=== PATIENT | female | born 1985 | race African-American/Black ===

== ENCOUNTER 2017-08-02 22:36 | Emergency (ER) | payer MEDICAID ==
[~2017-08-02] VITALS: Ht 152.4 cm; Wt 59.0 kg
[~2017-08-02 22:36] MED LIST: AZAT50TA24 PO; CALC-4 PO; OMEP20CA10 PO
[2017-08-02 22:54] VITALS: BP 129/74
== END 2017-08-03 02:30 | disposition left against medical advice (07) ==
LOC: ER 22:54
DX: R53.1 Weakness (principal); Z53.21 Procedure and treatment not carried out due to patient leaving prior to being seen by health care provider

== ENCOUNTER 2017-08-04 00:15 | Emergency (ER) | payer MEDICAID ==
[~2017-08-04] VITALS: Ht 167.6 cm; Wt 61.0 kg
[2017-08-04] MEDS ORDERED: SODIUM CHLORIDE 0.9% 1,000 ML IV ONE (05:08)
[2017-08-04] MEDS ORDERED: ONDANSETRON HCL 4MG/2ML VIAL IV STA (05:08)
[2017-08-04] MEDS ORDERED: FAMOTIDINE 20MG/2ML VIAL IV STA (05:08)
[2017-08-04 05:36] LABS: CHLORIDE 107 mEq/L (98-107)
[2017-08-04 05:37] LABS: HCG SCREEN NEGATIVE
[2017-08-04 05:38] LABS: INR 1.3; PROTHROMBIN TIME 13.8 sec (9.4-11.6)
[2017-08-04 05:45] LABS: CARBON DIOXIDE 26 mEq/L (21-32); ETHANOL BLOOD < 10 mg/dL
[2017-08-04 05:50] LABS: BASOPHILS % 0.9 % (0.0-2.0); EOSINOPHILS % 2.2 % (0.0-5.0); HEMATOCRIT. 30.2 % (36.0-48.0); HEMOGLOBIN. 10.9 g/dL (12.0-16.0); LYMPHOCYTES % 16.6 % (20.0-50.0); MEAN CORPUSCULAR HEMOGLOBIN 37.3 pg (28.0-32.0); MEAN CORPUSCULAR VOLUME 103.6 fL (81.0-99.0); MEAN PLATELET VOLUME 7.3 fl (7.4-10.4); MONOCYTES % 5.7 % (2.0-8.0); NEUTROPHILS % 74.6 % (40.0-76.0); PLATELET 54 x1000/uL (130-400); RED BLOOD CELL COUNT 2.91 mill/uL (4.2-5.4); RED CELL DISTRIBUTION WIDTH 13.4 % (11.6-14.6)
[2017-08-04 07:41] LABS: AMMONIA 147 uMol/L (<32)
[2017-08-04 09:16] LABS: CLARITY URINE CLEAR (CLEAR); COLOR URINE YELLOW (YELLOW); GLUCOSE URINE NEGATIVE (NEGATIVE); KETONES URINE NEGATIVE (NEGATIVE); LEUKOCYTE ESTERASE URINE NEGATIVE (NEGATIVE); NITRITE URINE NEGATIVE (NEGATIVE); OCCULT BLOOD URINE NEGATIVE (NEGATIVE); PH URINE 8.5 (4.5-8.0); PROTEIN URINE NEGATIVE (NEGATIVE); SPECIFIC GRAVITY URINE 1.009 (1.005-1.030)
[2017-08-04 09:28] LABS: *AMPHETAMINES SCREEN URINE NEGATIVE (NEGATIVE); *BARBITURATES SCREEN URINE NEGATIVE (NEGATIVE); *BENZODIAZEPINES SCREEN URINE NEGATIVE (NEGATIVE); *COCAINE SCREEN URINE NEGATIVE (NEGATIVE); CANNABINOID URINE SCREEN NEGATIVE (NEGATIVE); METHADONE URINE SCREEN NEGATIVE (NEGATIVE); OPIATES URINE SCREEN NEGATIVE (NEGATIVE); PHENCYCLIDINE URINE SCREEN NEGATIVE (NEGATIVE)
[2017-08-04 11:19] VITALS: BP 130/64
== END 2017-08-04 11:42 | disposition home or self-care (01) ==
LOC: ER 00:33
DX: K72.90 Hepatic failure, unspecified without coma (principal); D64.9 Anemia, unspecified; D72.819 Decreased white blood cell count, unspecified; I10 Essential (primary) hypertension
CPT/HCPCS: 36415; 71010; 74176; 80053; 80305; 81003; 82140; 83605; 83690; 84703; 85025; 85610; 93005; 96361; 96374; 96375; 99285; G0482; J2405; J3490; Z7610; J7030

== ENCOUNTER 2019-07-28 20:11 | Emergency (ER) | payer MEDICAID ==
[~2019-07-28] VITALS: Ht 152.4 cm; Wt 59.0 kg
[~2019-07-28 20:11] MED LIST changes: -OMEP20CA10 PO; +OMEP20CA5 PO
[2019-07-28] MEDS ORDERED: HYDROCODONE/ACETAMINOPHEN 5/325MG TABLET PO ONE (21:00)
[2019-07-28] MEDS ORDERED: PENICILLIN V POTASSIUM 250MG TABLET PO ONE (21:00)
[2019-07-28 21:39] VITALS: BP 125/71
== END 2019-07-28 21:45 | disposition home or self-care (01) ==
LOC: ER 20:11
DX: K04.7 Periapical abscess without sinus (principal)
CPT/HCPCS: 99283

== ENCOUNTER 2021-11-10 17:06 | Inpatient (IN) | payer MEDICAID ==
[~2021-11-10] VITALS: Ht 152.4 cm; Wt 63.5 kg
[~2021-11-10 17:06] MED LIST changes: +OMEP20CA14 PO; -OMEP20CA5 PO
[2021-11-10 21:33] LABS: CHLORIDE 112 mEq/L (98-107)
[2021-11-10 21:37] LABS: ETHANOL BLOOD < 10 mg/dL
[2021-11-10 21:44] LABS: BASOPHILS % 0.7 % (0.0-2.0); EOSINOPHILS % 1.3 % (0.0-5.0); HEMATOCRIT. 31.4 % (36.0-48.0); HEMOGLOBIN. 11.3 g/dL (12.0-16.0); LYMPHOCYTES % 21.1 % (20.0-50.0); MEAN CORPUSCULAR VOLUME 102.7 fL (81.0-99.0); MEAN PLATELET VOLUME 7.7 fl (7.4-10.4); MONOCYTES % 7.4 % (2.0-8.0); NEUTROPHILS % 69.5 % (40.0-76.0); PLATELET 66 x1000/uL (130-400); RED BLOOD CELL COUNT 3.06 mill/uL (4.2-5.4); RED CELL DISTRIBUTION WIDTH 15.9 % (11.6-14.6)
[2021-11-10 22:07] LABS: CLARITY URINE CLEAR (CLEAR); COLOR URINE YELLOW (YELLOW); KETONES URINE NEGATIVE (NEGATIVE); LEUKOCYTE ESTERASE URINE TRACE (NEGATIVE); NITRITE URINE NEGATIVE (NEGATIVE); OCCULT BLOOD URINE NEGATIVE (NEGATIVE); PH URINE 6.5 (4.5-8.0); PROTEIN URINE NEGATIVE (NEGATIVE); SPECIFIC GRAVITY URINE 1.009 (1.005-1.030)
[2021-11-10 22:42] LABS: *AMPHETAMINES SCREEN URINE NEGATIVE (NEGATIVE); *BARBITURATES SCREEN URINE NEGATIVE (NEGATIVE); *BENZODIAZEPINES SCREEN URINE NEGATIVE (NEGATIVE); *COCAINE SCREEN URINE NEGATIVE (NEGATIVE); CANNABINOID URINE SCREEN NEGATIVE (NEGATIVE); OPIATES URINE SCREEN NEGATIVE (NEGATIVE)
[2021-11-10 22:44] LABS: PHENCYCLIDINE URINE SCREEN NEGATIVE (NEGATIVE)
[2021-11-10 22:46] LABS: METHADONE URINE SCREEN NEGATIVE (NEGATIVE)
[2021-11-10] MEDS ORDERED: SODIUM CHLORIDE 0.9% 1,000 ML IV ONE (23:15)
[2021-11-10] MEDS ORDERED: LACTULOSE 20G/30ML UDC PO NR (23:45)
[2021-11-11] MEDS ORDERED: ZOLPIDEM TARTRATE 5MG TABLET PO PRN (00:30)
[2021-11-11] MEDS ORDERED: DIPHENHYDRAMINE 50MG/ML VIAL IV PRN (00:30)
[2021-11-11] MEDS ORDERED: ACETAMINOPHEN 325MG TABLET PO PRN (00:30)
[2021-11-11] MEDS ORDERED: ONDANSETRON HCL 4MG/2ML INJ IV PRN (00:30)
[2021-11-11] MEDS ORDERED: MAGNESIUM/ALUMINUM HYDROXIDE/SIMETHICONE 30ML UDC PO PRN (00:30)
[2021-11-11] MEDS: SODIUM CHLORIDE 0.9% INJ 3ML FLUSH IVF SCH ×3 (06:56→21:01)
[2021-11-11] MEDS: LACTULOSE 20G/30ML UDC PO SCH ×3 (06:56→21:01)
[2021-11-11 08:35] VITALS: BP 142/80
[2021-11-11] MEDS: ACETAMINOPHEN 325MG TABLET PO PRN ×2 (10:36→21:01)
[2021-11-11] MEDS ORDERED: PRED5TAB PO (11:49)
[2021-11-11 12:25] VITALS: BP 142/63
[2021-11-11] MEDS ORDERED: ESOM40CA53 PO (15:07)
[2021-11-11] MEDS ORDERED: LEVO100T9 PO (15:07)
[2021-11-11 16:20] VITALS: BP 133/81
[2021-11-11 20:00] VITALS: BP 137/72
[2021-11-11] MEDS: RIFAXIMIN 550 MG TABLET PO SCH (20:08)
[2021-11-11] MEDS: PANTOPRAZOLE 40MG DR TABLET PO SCH (20:08)
[2021-11-12] VITALS: BP 136/83
[2021-11-12 04:00] VITALS: BP 130/64
[2021-11-12] MEDS: ACETAMINOPHEN 325MG TABLET PO PRN (04:25)
[2021-11-12] MEDS: LEVOTHYROXINE SODIUM 100MCG TABLET PO SCH (06:39)
[2021-11-12] MEDS: PANTOPRAZOLE 40MG DR TABLET PO SCH ×2 (06:39→21:08)
[2021-11-12] MEDS: SODIUM CHLORIDE 0.9% INJ 3ML FLUSH IVF SCH ×3 (06:39→21:08)
[2021-11-12] MEDS: LACTULOSE 20G/30ML UDC PO SCH ×3 (06:39→18:25)
[2021-11-12 08:42] LABS: FERRITIN 14 ng/mL (10-291)
[2021-11-12 08:47] LABS: INR 1.4; PROTHROMBIN TIME 14.5 sec (9.6-11.0)
[2021-11-12 08:54] LABS: HEPATITIS B SURFACE ANTIGEN NEGATIVE
[2021-11-12 09:01] LABS: VITAMIN B12 SERUM 1287 pg/mL (211-911)
[2021-11-12] MEDS: PREDNISONE 5MG TABLET PO SCH (12:44)
[2021-11-12] MEDS: RIFAXIMIN 550 MG TABLET PO SCH ×2 (12:44→21:08)
[2021-11-12] MEDS: AZATHIOPRINE 50MG TABLET PO SCH (12:44)
[2021-11-12 20:00] VITALS: BP 116/67
[2021-11-12] MEDS: PROPRANOLOL HCL 10MG TABLET PO SCH (21:08)
[2021-11-13] VITALS: BP 119/64
[2021-11-13] MEDS: LACTULOSE 20G/30ML UDC PO SCH ×4 (00:31→17:40)
[2021-11-13] MEDS: ACETAMINOPHEN 325MG TABLET PO PRN (03:31)
[2021-11-13 04:00] VITALS: BP 122/71
[2021-11-13] MEDS: PANTOPRAZOLE 40MG DR TABLET PO SCH (06:35)
[2021-11-13] MEDS: SODIUM CHLORIDE 0.9% INJ 3ML FLUSH IVF SCH ×2 (06:36→17:40)
[2021-11-13] MEDS: LEVOTHYROXINE SODIUM 100MCG TABLET PO SCH (06:36)
[2021-11-13] MEDS: PROPRANOLOL HCL 10MG TABLET PO SCH (09:00)
[2021-11-13] MEDS: RIFAXIMIN 550 MG TABLET PO SCH (11:04)
[2021-11-13] MEDS: PREDNISONE 5MG TABLET PO SCH (11:04)
[2021-11-13] MEDS: AZATHIOPRINE 50MG TABLET PO SCH (11:04)
[2021-11-13 19:00] LABS: BASOPHILS % 0.3 % (0.0-2.0); EOSINOPHILS % 1.6 % (0.0-5.0); HEMATOCRIT. 29.5 % (36.0-48.0); HEMOGLOBIN. 10.3 g/dL (12.0-16.0); LYMPHOCYTES % 19.4 % (20.0-50.0); MEAN CORPUSCULAR HEMOGLOBIN 36.2 pg (28.0-32.0); MEAN CORPUSCULAR VOLUME 103.9 fL (81.0-99.0); MEAN PLATELET VOLUME 7.4 fl (7.4-10.4); MONOCYTES % 8.6 % (2.0-8.0); NEUTROPHILS % 70.1 % (40.0-76.0); PLATELET 60 x1000/uL (130-400); RED BLOOD CELL COUNT 2.84 mill/uL (4.2-5.4); RED CELL DISTRIBUTION WIDTH 15.5 % (11.6-14.6)
[2021-11-13 19:03] LABS: CHLORIDE 111 mEq/L (98-107)
[2021-11-13 20:00] VITALS: BP 133/80
[2021-11-13] MEDS ORDERED: LACT10SO7 PO (21:08)
[2021-11-13 21:09] VITALS: BP 133/80
== END 2021-11-13 21:35 | disposition home or self-care (01) | DRG 279 ==
LOC: ER 17:06 → MICUSO 23:54 → ENRESERV 11-11 07:40 → 6WST 11-11 09:11
PROVIDERS: ADMIT Internal Medicine; ATTEND Internal Medicine
DX: K72.90 Hepatic failure, unspecified without coma (principal); E43 Unspecified severe protein-calorie malnutrition; D61.818 Other pancytopenia; Z76.82 Awaiting organ transplant status; E72.20 Disorder of urea cycle metabolism, unspecified; K76.6 Portal hypertension; D53.9 Nutritional anemia, unspecified; E03.9 Hypothyroidism, unspecified; Z60.2 Problems related to living alone; Z20.822 Contact with and (suspected) exposure to COVID-19; D63.8 Anemia in other chronic diseases classified elsewhere; K74.60 Unspecified cirrhosis of liver; Z79.899 Other long term (current) drug therapy; Z98.891 History of uterine scar from previous surgery; Z68.27 Body mass index [BMI] 27.0-27.9, adult
CPT/HCPCS: 36415; 76700; 80053; 80076; 80305; 80320; 81003; 82140; 82248; 82607; 82728; 82746; 82962; 83540; 83550; 83735; 84443; 85025; 85044; 86705; 86709; 86803; 87340; 87426; 93005; 93976; 99285; J7030; J7500; J7512; G0480

== ENCOUNTER 2022-04-16 17:16 | Emergency (ER) | payer MEDICAID ==
[~2022-04-16] VITALS: Ht 152.4 cm; Wt 68.0 kg
[~2022-04-16 17:16] MED LIST changes: -CALC-4 PO; +ESOM40CA53 PO; +LACT10SO7 PO; +LEVO100T9 PO; -OMEP20CA14 PO; +PRED5TAB PO
[2022-04-16 23:25] LABS: BASOPHILS % 0.1 % (0.0-2.0); CHLORIDE 104 mEq/L (98-107); EOSINOPHILS % 0.5 % (0.0-5.0); HEMATOCRIT. 35.1 % (36.0-48.0); HEMOGLOBIN. 12.5 g/dL (12.0-16.0); LYMPHOCYTES % 8.7 % (20.0-50.0); MEAN CORPUSCULAR VOLUME 106.3 fL (81.0-99.0); MEAN PLATELET VOLUME 7.1 fl (7.4-10.4); MONOCYTES % 4.9 % (2.0-8.0); NEUTROPHILS % 85.8 % (40.0-76.0); PLATELET 75 x1000/uL (130-400); RED CELL DISTRIBUTION WIDTH 14.9 % (11.6-14.6)
[2022-04-16] MEDS ORDERED: LACT10SO7 PO (23:56)
[2022-04-17] VITALS: BP 133/57
== END 2022-04-17 00:22 | disposition home or self-care (01) ==
LOC: ER 17:16
DX: K70.30 Alcoholic cirrhosis of liver without ascites (principal); E72.20 Disorder of urea cycle metabolism, unspecified; R53.1 Weakness; L29.9 Pruritus, unspecified; F10.20 Alcohol dependence, uncomplicated; Y90.9 Presence of alcohol in blood, level not specified
CPT/HCPCS: 36415; 80048; 80076; 82140; 85025; 93005; 99284

== ENCOUNTER 2022-04-18 02:28 | Emergency (ER) | payer MEDICAID ==
[~2022-04-18] VITALS: Ht 162.6 cm; Wt 75.0 kg
[2022-04-18 02:40] VITALS: BP 149/84
[2022-04-18 04:10] LABS: BASOPHILS % 0.3 % (0.0-2.0); EOSINOPHILS % 0.7 % (0.0-5.0); HEMATOCRIT. 32.5 % (36.0-48.0); HEMOGLOBIN. 11.8 g/dL (12.0-16.0); LYMPHOCYTES % 11.3 % (20.0-50.0); MEAN CORPUSCULAR HEMOGLOBIN 37.8 pg (28.0-32.0); MEAN CORPUSCULAR VOLUME 104.5 fL (81.0-99.0); MEAN PLATELET VOLUME 7.6 fl (7.4-10.4); MONOCYTES % 6.7 % (2.0-8.0); PLATELET 81 x1000/uL (130-400); RED BLOOD CELL COUNT 3.11 mill/uL (4.2-5.4)
[2022-04-18 04:19] LABS: CHLORIDE 102 mEq/L (98-107)
[2022-04-18 04:27] LABS: ETHANOL BLOOD < 10 mg/dL
[2022-04-18 05:04] LABS: CLARITY URINE CLEAR (CLEAR); COLOR URINE DARK YELLOW (YELLOW); KETONES URINE NEGATIVE (NEGATIVE); LEUKOCYTE ESTERASE URINE TRACE (NEGATIVE); NITRITE URINE NEGATIVE (NEGATIVE); OCCULT BLOOD URINE NEGATIVE (NEGATIVE); PH URINE 5.5 (4.5-8.0); PROTEIN URINE NEGATIVE (NEGATIVE); SPECIFIC GRAVITY URINE 1.008 (1.005-1.030); UROBILINOGEN URINE >8.0 E.U./dL (0.2-1.0)
[2022-04-18 05:15] LABS: *AMPHETAMINES SCREEN URINE NEGATIVE (NEGATIVE); *BARBITURATES SCREEN URINE NEGATIVE (NEGATIVE); *BENZODIAZEPINES SCREEN URINE NEGATIVE (NEGATIVE); *COCAINE SCREEN URINE NEGATIVE (NEGATIVE); CANNABINOID URINE SCREEN NEGATIVE (NEGATIVE); METHADONE URINE SCREEN NEGATIVE (NEGATIVE); OPIATES URINE SCREEN NEGATIVE (NEGATIVE); PHENCYCLIDINE URINE SCREEN NEGATIVE (NEGATIVE)
[2022-04-18] MEDS ORDERED: HYDROCODONE/ACETAMINOPHEN 10/325MG TABLET PO ONE (05:30)
[2022-04-18] MEDS ORDERED: LACTULOSE 20G/30ML UDC PO ONE (05:30)
== END 2022-04-18 06:19 | disposition home or self-care (01) ==
LOC: ER 02:43
DX: K74.60 Unspecified cirrhosis of liver (principal)
CPT/HCPCS: 36415; 80053; 80305; 80320; 81003; 82140; 85025; 99283; G0480